=== PATIENT | male | born 2000 | race Caucasian/White ===

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

== ENCOUNTER 2022-07-15 21:22 | Emergency (ER) | payer OTHER, SELFPAY ==
--- NOTE | ~2022-07-15 | XR_ITS ---
EXAMINATION: XR CHEST CLINICAL INFORMATION: Shortness of breath. COMPARISON: None TECHNIQUE: Frontal view of the chest was obtained. FINDINGS: Normal appearance of the cardiomediastinal silhouette. No focal airspace opacity, pleural effusion or pneumothorax. No acute osseous abnormalities. The visualized upper abdomen is within normal limits. XR/XR chest 1V IMPRESSION: No acute cardiopulmonary findings.
[2022-07-15 21:27] VITALS: BP 133/77; PULSE 129; RESP 16; TEMP 39.5; O2SAT 96; BMI 24.7
[2022-07-15] MEDS: Acetaminophen 325 MG TABLET 650 MG PO (21:34)
[2022-07-15 21:59] LABS: MANUAL DIFF FLAG NO
[2022-07-15 22:01] LABS: Basophils Percent Auto 0.2 % (0-2); Hematocrit 44.2 % (42.0-52.0); Hemoglobin 15.5 g/dl (14.0-18.0); Imm Gran Abs Auto 0.04 X10*3/uL (0.00-0.03); Imm Gran Pct Auto 0.4 % (0.0-0.4); Lymphocytes Absolute Auto 0.7 X10*3/uL (1.2-4.9); Mean Corpuscular HGB Conc 35.1 g/dl (31.0-36.0); Mean Corpuscular Hemoglobin 29.7 pg (27.0-33.0); Mean Corpuscular Volume 84.7 fL (80.0-98.0); Mean Platelet Volume 9.3 fL (9.4-12.4); Monocytes Absolute Auto 0.9 X10*3/uL (0.1-1.2); Monocytes Percent Auto 8.3 % (2-11); Neutrophils Absolute Auto 9.3 x10*3/uL (2.0-8.3); Neutrophils Percent Auto 85.1 % (45-73); Platelet Count 245 X10*3/uL (160-400); Red Blood Count 5.22 X10*6/uL (4.60-5.80); White Blood Count 10.9 X10*3/uL (4.8-10.8)
[2022-07-15 22:19] LABS: Alanine Aminotransferase 18 U/L (0-40); Albumin Level 4.7 g/dL (3.5-5.0); Alkaline Phosphatase 66 U/L (39-117); Anion Gap 14 (12-20); Aspartate Amino Transferase 22 U/L (5-37); Bilirubin Total 0.6 mg/dL (0.0-1.0); Blood Urea Nitrogen 13 mg/dL (9-16); Calcium 9.2 mg/dL (8.4-10.2); Carbon Dioxide 26 mmol/L (22-29); Chloride 101 mmol/L (96-108); Creatinine Clr Calc Pharmacy 92.7; Estimated Glomerular Filt Rate > 60; Glucose Random 95 mg/dL (60-115); Potassium 3.9 mmol/L (3.3-5.1); Sodium 137 mmol/L (135-145); Total Protein 7.5 g/dL (6.5-8.0)
[2022-07-15 22:38] LABS: Influenza A PCR POSITIVE (Negative); Influenza B PCR NEGATIVE (Negative); Resp Syncy Virus RNA Qual PCR NEGATIVE (Negative); SARS COV2 PCR INHOUSE NEGATIVE (Negative)
[2022-07-15 23:07] VITALS: BP 121/69; PULSE 119; RESP 18; TEMP 39.4; O2SAT 97
[2022-07-15] MEDS: Ibuprofen 400 MG TABLET PO (23:24)
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
[2022-07-15 23:26] VITALS: BP 115/68; PULSE 100; RESP 18; TEMP 37.8; O2SAT 96
[2022-07-15] MEDS: Oseltamivir Phosphate 75 MG CAPSULE PO (23:47)
== END 2022-07-15 23:53 | disposition home or self-care (01) ==
PROVIDERS: Emergency Provider Emergency Medicine
DX: J11.1 Influenza due to unidentified influenza virus with other respiratory manifestations (principal); R50.9 Fever, unspecified; Z20.822 Contact with and (suspected) exposure to COVID-19
CPT/HCPCS: 0241U; 71045; 80053; 85025; 99283; 99284

== ENCOUNTER 2022-10-25 17:36 | Emergency (ER) | payer OTHER, SELFPAY ==
--- NOTE | ~2022-10-25 | XR_ITS ---
Indication: Rule out foreign body, bony injury EXAMINATION: Left knee, left femur. 2 views left knee do not demonstrate evidence for fracture or dislocation. No radiopaque foreign body is seen. 2 views left femur do not demonstrate fracture. No radiopaque foreign body. XR/XR femur LT 2V IMPRESSION: No acute bony finding. No radiopaque foreign body is seen.
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
--- NOTE | ~2022-10-25 | XR_ITS ---
Indication: Rule out foreign body, bony injury EXAMINATION: Left knee, left femur. 2 views left knee do not demonstrate evidence for fracture or dislocation. No radiopaque foreign body is seen. 2 views left femur do not demonstrate fracture. No radiopaque foreign body. XR/XR knee LT 2V IMPRESSION: No acute bony finding. No radiopaque foreign body is seen.
[2022-10-25 18:03] VITALS: BP 144/66; PULSE 83; RESP 18; TEMP 36.8; O2SAT 98; BMI 24.7
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
== END 2022-10-25 20:27 | disposition home or self-care (01) ==
PROVIDERS: Emergency Provider Emergency Medicine
DX: M79.652 Pain in left thigh (principal); S70.12XD Contusion of left thigh, subsequent encounter; X93.XXXD Assault by handgun discharge, subsequent encounter
CPT/HCPCS: 73552; 73560; 93971; 99284

== ENCOUNTER 2022-11-02 20:28 | Emergency (ER) | payer OTHER, SELFPAY ==
[2022-11-02 20:45] VITALS: BP 143/82; PULSE 98; RESP 18; TEMP 36.9; O2SAT 98; BMI 24.3
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
[2022-11-02 21:13] LABS: MANUAL DIFF FLAG NO
[2022-11-02 21:14] LABS: Basophils Absolute Auto 0.1 X10*3/uL (0.0-0.2); Basophils Percent Auto 0.5 % (0-2); Eosinophils Absolute Auto 0.2 X10*3/uL (0.0-0.4); Eosinophils Percent Auto 1.2 % (0-4); Hemoglobin 14.7 g/dl (14.0-18.0); Imm Gran Abs Auto 0.07 X10*3/uL (0.00-0.03); Imm Gran Pct Auto 0.5 % (0.0-0.4); Lymphocytes Percent Auto 15.4 % (20-40); Mean Corpuscular HGB Conc 34.2 g/dl (31.0-36.0); Mean Corpuscular Hemoglobin 29.5 pg (27.0-33.0); Mean Corpuscular Volume 86.2 fL (80.0-98.0); Mean Platelet Volume 9.3 fL (9.4-12.4); Monocytes Percent Auto 7.5 % (2-11); Neutrophils Absolute Auto 9.9 x10*3/uL (2.0-8.3); Neutrophils Percent Auto 74.9 % (45-73); Platelet Count 361 X10*3/uL (160-400); Red Blood Count 4.99 X10*6/uL (4.60-5.80); Red Cell Distribution Width 13.1 % (11.0-16.0); White Blood Count 13.3 X10*3/uL (4.8-10.8)
[2022-11-02 21:28] LABS: Anion Gap 12 (12-20); Blood Urea Nitrogen 15 mg/dL (9-16); Calcium 9.3 mg/dL (8.4-10.2); Carbon Dioxide 28 mmol/L (22-29); Chloride 102 mmol/L (96-108); Creatinine Clr Calc Pharmacy 102.2; Estimated Glomerular Filt Rate > 60; Glucose Random 96 mg/dL (60-115); Potassium 4.3 mmol/L (3.3-5.1); Sodium 138 mmol/L (135-145)
[2022-11-02] MEDS: Sulfamethox/Trimeth 800/160 TABLET 1 TAB PO (23:40)
[2022-11-02 23:43] VITALS: BP 134/76; PULSE 90; RESP 18; O2SAT 100
[2022-11-02] MEDS: Ketorolac Tromethamine 60 MG/2 ML VIAL IM (23:54)
== END 2022-11-02 23:58 | disposition home or self-care (01) ==
PROVIDERS: Physician Assistant; Emergency Provider Emergency Medicine
DX: L03.116 Cellulitis of left lower limb (principal); Z79.899 Other long term (current) drug therapy
CPT/HCPCS: 36415; 80048; 85025; 96372; 99284; J1885

== ENCOUNTER 2023-11-05 22:42 | Emergency (ER) | payer OTHER, SELFPAY ==
[2023-11-05 22:49] VITALS: BP 136/74; PULSE 73; RESP 16; TEMP 36.2; O2SAT 99; BMI 26.8
[2023-11-06 02:04] VITALS: BP 132/84; PULSE 61; RESP 14; TEMP 36.4; O2SAT 98
--- NOTE | 2023-11-06 02:36 | ED.NECK ---
HPI - Neck Pain/Injury General Chief Complaint: Neck Pain/Injury Stated Complaint: pulled muscle in neck 3 weeks ago. Time Seen by Provider: 11/06/23 02:30 Source: patient Mode of arrival: ambulatory Limitations: no limitations History of Present Illness HPI Narrative: Patient comes to the emergency room complaining of left-sided neck pain that started approximately 3 weeks ago. Patient states that at the gym he was doing heavy lifting, shoulder raises, the next day he started having pain on the left side of the neck. Patient states that whenever he puts his hands down and tries to sit himself up hurts the most. Otherwise, patient has normal range of motion without any pain.. Patient denies any numbness or tingling of the extremities. Patient denies any midline neck pain Related Data Previous Rx's ?Medication ?Instructions ?Recorded amoxicillin 875 mg-potassium 1 tab PO BID #14 tabs 01/28/21 clavulanate 125 mg tablet (Augmentin) cetirizine 10 mg tablet (Zyrtec) 10 mg PO DAILY #14 tabs 01/28/21 fluticasone propionate 50 1 spray intranasal BID #16 grams 01/28/21 mcg/actuation nasal spray,suspension (Flonase Allergy Relief) ibuprofen 400 mg tablet 400 mg PO Q8H PRN fever or pain 07/15/22 #20 tabs oseltamivir 75 mg capsule (Tamiflu) 75 mg PO BID 5 days #10 caps 07/15/22 sulfamethoxazole 800 1 tab PO BID #19 tabs 11/02/22 mg-trimethoprim 160 mg tablet (Bactrim DS) cyclobenzaprine 10 mg tablet 10 mg PO TID PRN muscle spasm #10 11/06/23 tabs ketorolac 10 mg tablet 10 mg PO Q8H PRN pain #10 tabs 11/06/23 Allergies Allergy/AdvReac Type Severity Reaction Status Date / Time No Known Allergies Allergy Verified 11/05/23 22:53 Review of Systems Review of Systems: Constitutional : No Weight loss, No Fever, No Chills, No Night Sweats, No Fatigue, No Malaise ENT/Mouth : No Hearing loss, No Ear Pain, No Nasal Congestion, No Sinus Pain, No Hoarseness, No sore throat, No Rhinorrhea, No Swallowing Difficulty Eyes: No Eye Pain, No Swelling, No Redness, No Foreign Body, No Discharge, No Vision Changes Cardiovascular : No Chest Pain, No SOB, No Dyspnea on Exertion, No Orthopnea, No Edema, No Palpitations Respiratory : No Cough, No Sputum, No Wheezing, No Smoke Exposure, No Dyspnea Gastrointestinal : No Nausea, No Vomiting, No Diarrhea, No Constipation, No abdominal Pain, No Hematochezia, No Melena Genitourinary : no irregular bleeding, No Dysuria, No Urinary Frequency, No Hematuria, No Urinary Incontinence, No Urgency, No Flank Pain, No Urinary Flow Changes, No Hesitancy Musculoskeletal : Muscular neck pain on the left side with shoulder shrugs Skin : No Skin Lesions, No rash Neuro : No Weakness, No Numbness, No Paresthesias, No Loss of Consciousness, No Dizziness, No Headache Psych : No Anxiety/Panic, No Depression, No SI/HI/AH/VH, No Social Issues, Heme/Lymph: No Bruising, No Bleeding,No Lymphadenopathy Endocrine : No Polyuria, No Polydipsia, No Temperature Intolerance [facility] Social History Social History Alcohol intake: current Alcohol intake frequency: a few times a week Alcohol type: wine and hard liquor Advance Directives: No Advance Directives Information Provided: No Do you have a plan to hurt others: No Plan Physical Exam Vital Signs: Vital Signs: Last Vital Signs Temp 97.5 F 11/06/23 02:04 Pulse 61 11/06/23 02:04 Resp 14 11/06/23 02:04 BP 132/84 11/06/23 02:04 Pulse Ox 98 11/06/23 02:04 O2 Del Method Room Air 11/06/23 02:04 BMI result Body Mass Index 26.8 Const: Other: Appearance: Alert. Oriented X3. No acute distress. Eyes: Pupils equal, round and reactive to light. ENT: Pharynx normal. Neck: Normal inspection. Neck supple. No lymph nodes noted. No crepitus, no C-spine tenderness, normal flexion and extension with no pain with movement, fairly normal range of motion with head rotation. CVS: Normal heart rate and rhythm. Pulses normal. Normal S1 and S2 Respiratory: No respiratory distress. Breath sounds normal. No Wheezing. No rales Abdomen: Soft and nontender. No rigidity. No distention. Skin: Skin warm and dry. Normal skin color. Normal skin turgor. Extremities: No lower extremity edema. No Lacerations. No Rash Neuro: Oriented X 3. No motor deficit. No sensory deficit. Moving all extremities. No slurred speech. 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 Discussed with the patient stretching exercises and also patient will follow-up with his primary care physician as patient may need for physical therapy since it has been going on for 3 weeks. Patient denies any falls, no car accidents, no injuries -for comfort, patient was given a dose of IM ketorolac and cyclobenzaprine. -bony injury not suspected, no sores of blunt trauma -patient denies any headache, right side of the neck and midline within normal limits with no pain with movement or without movement Differential Diagnosis Differential Diagnoses: The differential diagnosis associated with the presentation includes (Musculoskeletal pain,) Discharge Plan Discharge Clinical Impression: Strain of neck muscle Patient Disposition: Home, Self-Care Instructions: Muscle Strain (ED) Additional Instructions: Please follow-up with your primary care physician tomorrow. If you have any worsening or new symptoms, please return to the emergency room or call 911 Prescriptions: New ketorolac 10 mg tablet 10 mg PO Q8H PRN (Reason: pain) Qty: 10 0RF Rx Instructions: The not use this medication with ibuprofen, only Tylenol if needed. maximum total duration of 5 days from all oral, intranasal, or parenteral formulations cyclobenzaprine 10 mg tablet 10 mg PO TID PRN (Reason: muscle spasm) Qty: 10 0RF No Action amoxicillin-pot clavulanate [Augmentin] 875-125 mg tablet 1 tab PO BID Qty: 14 0RF fluticasone propionate [Flonase Allergy Relief] 50 mcg/actuation spray,suspension 1 spray intranasal BID Qty: 16 0RF Rx Instructions: administer into each nostril cetirizine [Zyrtec] 10 mg tablet 10 mg PO DAILY Qty: 14 0RF oseltamivir [Tamiflu] 75 mg capsule 75 mg PO BID 5 Days Qty: 10 0RF ibuprofen 400 mg tablet 400 mg PO Q8H PRN (Reason: fever or pain) Qty: 20 0RF sulfamethoxazole-trimethoprim [Bactrim DS] 800-160 mg tablet 1 tab PO BID Qty: 19 0RF Print Language: Irish
[2023-11-06] MEDS: Ketorolac Tromethamine 60 MG/2 ML VIAL IM (02:59)
[2023-11-06] MEDS: Cyclobenzaprine HCl 10 MG TABLET PO (02:59)
[2023-11-06 03:25] VITALS: BP 132/84; PULSE 61; RESP 14; TEMP 36.4; O2SAT 98
== END 2023-11-06 03:26 | disposition home or self-care (01) ==
PROVIDERS: Emergency Provider Emergency Medicine
DX: S16.1XXA Strain of muscle, fascia and tendon at neck level, initial encounter (principal); X50.0XXA Overexertion from strenuous movement or load, initial encounter; Y93.B3 Activity, free weights; Y92.59 Other trade areas as the place of occurrence of the external cause; Y99.9 Unspecified external cause status
CPT/HCPCS: 96372; 99284; J1885